=== PATIENT | female | born 1960 | race Caucasian/White ===

== ENCOUNTER → 2023-06-16 15:56 | Outpatient (REF) | payer OTHER, SELFPAY | LOC: HWWDC 15:56 | PROVIDERS: ATTENDING PHYSICIAN Nurse Practitioner Family | DX: Z12.31 Encounter for screening mammogram for malignant neoplasm of breast (principal) | CPT/HCPCS: 77063; 77067 ==

== ENCOUNTER → 2024-03-25 16:05 | Outpatient (REF) | payer OTHER, SELFPAY | LOC: HWRAD 16:05 | PROVIDERS: ATTENDING PHYSICIAN Nurse Practitioner Family | DX: M79.641 Pain in right hand (principal); M25.531 Pain in right wrist; W19.XXXA Unspecified fall, initial encounter | CPT/HCPCS: 73110; 73130 ==

== ENCOUNTER → 2024-04-15 15:56 | Outpatient (REF) | payer OTHER, SELFPAY | LOC: HWRCS 15:56 | PROVIDERS: ATTENDING PHYSICIAN Internal Medicine; FAMILY PHYSICIAN Nurse Practitioner Family | DX: R55 Syncope and collapse (principal); I45.2 Bifascicular block | CPT/HCPCS: 93306 ==

== ENCOUNTER 2024-05-03 10:07 | Day surgery (SDC) | payer OTHER, SELFPAY ==
[2024-04-26 13:21] VITALS: BMI 14.2
--- NOTE | 2024-05-03 13:03 | ITS.CL.IMPLP ---
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
Implant Loop
Procedure Report:
Date of Procedure: May 03, 2024.
Procedure: Insertable Loop Recorder Implant.
Indication: Syncope. Bifascicular heart block. Negative outpatient telemetry.
Performing physician: Jacinto Carvajal MD, [facility].
Implant: [employer]; Reveal LINQII; Model# [id number]; Serial# [id number].
Technique: The patient was prepped and draped in the usual fashion. A time-out was performed. No intravenous sedation was administered. Local anesthetic was applied to the left pre-pectoral subcutaneous tissue. Using the insertion kit an incision
was made left of the midline in the fourth intercostal space and the device was implanted subcutaneously and directed towards the nipple. Hemostasis was excellent. The skin was closed with steri-strips. The estimated blood loss was less than 1 ml.
There were no complications. No fluoroscopy. R waves measured 0.41 mV and P waves were visible.
Final Programming: Detections: Afib, tachy at 160 bpm, karen at 30 bpm, pause at 3 sec.
Conclusion: Uncomplicated insertable loop implant.
Recommendation: Routine post-insertable loop care. The device is MRI conditional without a waiting period and up to 3 Ryann.
cc: Mike Andres MD and WINTER Iqbal..
== END 2024-05-03 12:25 | disposition home or self-care (01) ==
LOC: CATH 10:07
PROVIDERS: ATTENDING PHYSICIAN Internal Medicine Cardiovascular Disease; FAMILY PHYSICIAN Nurse Practitioner Family; OTHER PHYSICIAN Internal Medicine
DX: Z09 Encounter for follow-up examination after completed treatment for conditions other than malignant neoplasm (principal); J98.4 Other disorders of lung; M81.0 Age-related osteoporosis without current pathological fracture; F41.9 Anxiety disorder, unspecified; F32.A Depression, unspecified; G47.33 Obstructive sleep apnea (adult) (pediatric); R00.0 Tachycardia, unspecified; R55 Syncope and collapse; I45.2 Bifascicular block; I31.39 Other pericardial effusion (noninflammatory); I10 Essential (primary) hypertension; Z79.899 Other long term (current) drug therapy; Z88.2 Allergy status to sulfonamides
CPT/HCPCS: 33285; 93005; C1764

== ENCOUNTER → 2024-05-07 08:52 | Outpatient (REF) | payer OTHER, SELFPAY | LOC: HWRAD 08:52 | PROVIDERS: ATTENDING PHYSICIAN Internal Medicine Endocrinology, Diabetes & Metabolism; FAMILY PHYSICIAN Nurse Practitioner Family | DX: M81.0 Age-related osteoporosis without current pathological fracture (principal) | CPT/HCPCS: 77080 ==

== ENCOUNTER → 2024-06-24 15:53 | Outpatient (REF) | payer OTHER, SELFPAY | LOC: HWWDC 15:53 | PROVIDERS: ATTENDING PHYSICIAN Nurse Practitioner Family | DX: Z12.31 Encounter for screening mammogram for malignant neoplasm of breast (principal) | CPT/HCPCS: 77063; 77067 ==

== ENCOUNTER 2024-11-08 06:20 | Day surgery (SDC) | payer OTHER, SELFPAY | END 2024-11-08 14:20 | disposition home or self-care (01) | LOC: GI 06:20 | PROVIDERS: ATTENDING PHYSICIAN Internal Medicine Gastroenterology | DX: Z12.11 Encounter for screening for malignant neoplasm of colon (principal); D12.2 Benign neoplasm of ascending colon; D12.3 Benign neoplasm of transverse colon; K56.2 Volvulus; K57.30 Diverticulosis of large intestine without perforation or abscess without bleeding; R19.7 Diarrhea, unspecified; K64.9 Unspecified hemorrhoids | CPT/HCPCS: 45385; 45380; 88305 ==